=== PATIENT | female | born 1980 | race Caucasian/White ===

== ENCOUNTER 2025-05-08 15:04 | Emergency (ER) | payer OTHER, SELFPAY ==
[2025-05-08 15:07] VITALS: BP 124/80; PULSE 84; RESP 18; TEMP 37.1; O2SAT 100
--- OUTSIDE RECORDS SUMMARY | 2025-05-08 15:07 | XMS_ITS | Clinical Summary ---
Author Organization [facility] Address [address] [place] [address] Phone Care Team Providers Care Supervisor Paper Machine Name Role Phone Unavailable Primary Care Provider Unavailabl e Social History Tobacco Use Types Packs/Day Years Used Date Smoking Tobacco: Never Assessed Comments Unknown Sex and Gender Information Value Date Recorded Sex Assigned at Not on file Legal Sex Female 6:11 AM [employer] Gender Identity Not on file Sexual Orientation Not on file Plan of Treatment Health Maintenance Due Date Last Done Comments HPV VACCINES (1 - 3-dose series) 1996 DTAP/TDAP/TD VACCINES (1 - Tdap) 2000 HEPATITIS B VACCINES (1 of 3 - 19+ 3-dose series) 08/16 HPV/Cotest (21-29) 2002 CERVICAL CANCER SCREENING 2011 HPV/Cotest (30-65) 2011 PAP SMEAR 2011 BREAST CANCER SCREENING 2021 INFLUENZA VACCINE (#1) 2025
--- NOTE | 2025-05-08 15:12 | ED.SKABFB ---
HPI - Skin/Abscess/Foreign Bdy General Chief complaint: Skin/Abscess/Foreign Body Stated complaint: Skin Problem Time Seen by Provider: 05/08/25 15:12 Source: patient Mode of arrival: ambulatory Limitations: no limitations History of Present Illness HPI narrative: 44 yo F presents with c/o itching for about 2 wks. Has red spots that are coming and going to body, spares face. 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 had resident seen for rash and has scabies. pt now concerned she has scabies. All systems reviewed and negative except as noted above. Related Data Home Medications ?Medication ?Instructions ?Recorded ?Confirmed ?Last Taken ?Type No Home Medications 05/08/25 05/08/25 Unknown History Allergies Allergy/AdvReac Type Severity Reaction Status Date / Time No Known Drug Allergies Allergy Unknown Unknown Verified 05/08/25 15:25 PMFSH Comments At time of signature, agree with nursing past medical, surgical, social and family history. There is no relevant family history pertinent to the presenting complaint. Exam Narrative: GENERAL: This is a well-nourished, well-developed patient, in no apparent distress. HEAD: normocephalic, atraumatic. EYES: PERRL. Sclera clear/white. Vision is grossly intact. EARS: External ears normal NOSE: External nose normal NECK: Neck supple, non-tender without lymphadenopathy, masses or thyromegaly. CARDIOVASCULAR: Regular rate and rhythm without murmurs, gallops, or rubs. RESPIRATORY: Clear to auscultation. Breath sounds equal bilaterally. No wheezes, rales, or rhonchi. SKIN: warm, Dry, intact , good texture and turgor. a couple tiny red bumps to anterior aspects of both wrists noted. NEURO: awake, alert, and oriented to person, place and time. There were no obvious focal neurologic abnormalities. EXTREMITIES: No joint tenderness, effusion, or edema noted. No calf tenderness. Negative Homans sign bilaterally. BACK: Nontender without deformity. No CVA tenderness. Course Course Level of Care: Express Care Visit Vital Signs Vital signs: Vital Signs Temperature 37.1 C 05/08/25 15:07 Pulse Rate 84 05/08/25 15:07 Respiratory Rate 18 05/08/25 15:07 Blood Pressure 124/80 05/08/25 15:07 Pulse Oximetry 100 05/08/25 15:07 Oxygen Delivery Room Air 05/08/25 15:07 Temperature 37.1 C 05/08/25 15:07 Pulse Rate 84 05/08/25 15:07 Respiratory Rate 18 05/08/25 15:07 Blood Pressure 124/80 05/08/25 15:07 Pulse Oximetry 100 05/08/25 15:07 Oxygen Delivery Room Air 05/08/25 15:07 reviewed MDM - Skin/Abscess/Foreign Bdy MDM Narrative Medical decision making narrative: no significant rash/bites noted. Will treat pt due to exposure to scabies. recommend follow up with PCP is not improving. Discharge Plan Discharge Clinical Impression: Exposure to scabies Patient Disposition: Home Condition: Stable Instructions: Scabies (ED) Additional Instructions: Apply permethrin cream as prescribed to treat scabies. Repeat treatment in 2 weeks if symptoms have not resolved. Take hydroxyzine as prescribed to treat itching. This medication may cause drowsiness. follow-up with dermatology if symptoms are not improving. Patient Language: [place] Prescriptions: New hydroxyzine HCl 10 mg tablet 10 mg PO Q6-8H PRN (Reason: itching) Qty: 30 0RF permethrin 5 % cream 1 applic topical ONCE 1 Days Qty: 60 1RF Rx Instructions: Apple from neck down to soles of feet. Leave on for 8 to 10 hours and then shower. Repeat treatment 14 days if symptoms persist. No Action No Home Medications Follow-up/Referrals: PHYSICIAN,SUPERVISOR PYROTECHNIC LOADING [Primary Care Provider] - Time of Disposition: 15:27
== END 2025-05-08 15:30 | disposition home or self-care (01) ==
PROVIDERS: Emergency Provider Nurse Practitioner Family
DX: Z20.7 Contact with and (suspected) exposure to pediculosis, acariasis and other infestations (principal)
CPT/HCPCS: 99213; G0463